=== PATIENT | male | born 1990 | race Caucasian/White ===

== ENCOUNTER 2016-08-28 21:18 | Emergency (ER) | payer OTHER ==
[2016-08-28 21:43] VITALS: BP 113/79; PULSE 78; RESP 16; TEMP 98.2; O2SAT 98
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
[2016-08-28] MEDS ORDERED: LET GEL TOPICAL 1 EA SYR TP ONE (22:53)
== END 2016-08-28 23:36 | disposition home or self-care (01) ==
DX: S42.021A Displaced fracture of shaft of right clavicle, initial encounter for closed fracture (principal); S50.811A Abrasion of right forearm, initial encounter; S80.211A Abrasion, right knee, initial encounter; S70.211A Abrasion, right hip, initial encounter; V18.0XXA Pedal cycle driver injured in noncollision transport accident in nontraffic accident, initial encounter; Y92.482 Bike path as the place of occurrence of the external cause; Y99.8 Other external cause status; Y93.55 Activity, bike riding
CPT/HCPCS: A4565